=== PATIENT | female | born 1995 | race Caucasian/White ===

== ENCOUNTER → 2018-02-14 | Outpatient (CLI) | payer OTHER ==
[~2018-02-14] MED LIST: IOPAMIDOL (ISOVUE 370) 100 ML BTL IV ONE
== END ==
LOC: CIMAGING 08:15
PROVIDERS: ATTEND Family Medicine
DX: H93.A1 Pulsatile tinnitus, right ear (principal); R42 Dizziness and giddiness; R51 Headache
CPT/HCPCS: 70450-PO; 70496-PO; Q9967